=== PATIENT | female | born 1965 | race Two or more races ===

== ENCOUNTER 2019-03-11 10:53 | Emergency (ER) | payer OTHER ==
[2019-03-11] MEDS ORDERED: SILVER SULFADIAZINE 1% CREAM 50 GM TP ONE (11:11)
[2019-03-11] MEDS ORDERED: PROMETHAZINE HCL 25 MG TABLET PO ONE (11:11)
[2019-03-11] MEDS ORDERED: OXYCODONE-ACETAMINOPHEN 5-325 MG TABLET PO ONE (11:11)
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
[2019-03-11 13:20] VITALS: BP 127/89
== END 2019-03-11 13:15 | disposition home or self-care (01) ==
LOC: ER 10:53
DX: T23.261A Burn of second degree of back of right hand, initial encounter (principal); X13.1XXA Other contact with steam and other hot vapors, initial encounter; F17.200 Nicotine dependence, unspecified, uncomplicated; Z88.6 Allergy status to analgesic agent; Z88.0 Allergy status to penicillin; Z90.49 Acquired absence of other specified parts of digestive tract
CPT/HCPCS: 99283; J3490

== ENCOUNTER → 2020-11-08 | Outpatient (CLI) | payer OTHER ==
[~2020-11-08] MED LIST: COVID-19 VACCINE (PFIZER)/PF 30 MCG/0.3 ML VIAL IM ONE; EPINEPHRINE INJ/PF 1 MG/1 ML AMPULE IM PRN
== END ==
LOC: EMPHEALTH 06:59
PROVIDERS: ATTEND Internal Medicine
DX: Z23 Encounter for immunization (principal)
CPT/HCPCS: 91300

== ENCOUNTER → 2020-11-28 | Outpatient (CLI) | payer OTHER | LOC: EMPHEALTH 07:01 | PROVIDERS: ATTEND Internal Medicine | DX: Z23 Encounter for immunization (principal) | CPT/HCPCS: 91300 ==